=== PATIENT | female | born 1970 | race Caucasian/White ===

== ENCOUNTER 2016-08-15 10:57 | Observation (INO) | payer OTHER ==
--- NOTE | 2016-08-15 11:18 | CPEKG ---
Heart Rate: 88 RR Interval: 682 P-R Interval: 111 QRSD Interval: 76 QT Interval: 344 QTC Interval: 417 P [place]: 0 QRS [place]: -20 T Wave [place]: 66 EKG Severity - ABNORMAL ECG - EKG Impression: SINUS RHYTHM EKG Impression: BORDERLINE LEFT AXIS DEVIATION EKG Impression: CONSIDER ANTEROSEPTAL INFARCT EKG Impression: BORDERLINE T ABNORMALITIES, LATERAL LEADS Electronically Signed By: Robin Rocha 16-Aug-2016 13:16:45
[2016-08-15 11:30] LABS: % IMMATURE GRANULYOCYTES 0.3 % (0.0-1.1); ABSOLUTE IMMATURE GRANULOCYTES 0.03 10^3/uL (0.00-0.10); ADD DIFF? NO; ADD MORPH? NO; ADD SCAN? NO; ATYPICAL LYMPHOCYTE FLAG 0 (0-99); FRAGMENT RBC FLAG 0 (0-99); HEMATOCRIT 42.4 % (38.0-47.0); HEMOGLOBIN 14.7 g/dL (12.6-16.3); LEFT SHIFT FLG 0 (0-99); LIPEMIA HEMOLYSIS FLAG 90 (0-99); MEAN CELL HEMOGLOBIN 31.2 pg (27.9-34.1); MEAN CELL HEMOGLOBIN CONCENTR. 34.7 g/dL (32.4-36.7); MEAN PLATELET VOLUME 8.7 fL (8.7-11.7); PLATELET CLUMPS FLAG 10 (0-99); PLATELET COUNT 406 10^3/uL (150-400); RED BLOOD CELL COUNT 4.71 10^6/uL (4.18-5.33); RED CELL DISTRIBUTION WIDTH 12.7 % (11.5-15.2)
[2016-08-15] MEDS ORDERED: ASPIRIN 81 MG CHEWABLE TAB PO ONE (11:31)
[2016-08-15 11:35] LABS: INR 0.98 (0.83-1.16); PROTIME(PATIENT) 12.8 SEC (12.0-15.0)
[2016-08-15 11:36] LABS: APTT 28.7 SEC (23.0-38.0)
--- NOTE | 2016-08-15 11:52 | DX ---
Chest, PA and lateral. History: Chest pressure. Cough. Findings: Heart size is within normal limits. Pulmonary vascularity is normal. The lungs are clear. No evidence of pleural effusion or pneumothorax. Minimal degenerative change is seen in the thoracic spine. Impression: No evidence of acute cardiopulmonary abnormality.
[2016-08-15 11:53] LABS: TROPONIN I < 0.012 ng/mL (0-0.034)
[2016-08-15 11:55] LABS: ALANINE AMINOTRANSFERASE 22 IU/L (9-52); ALBUMIN 4.5 g/dL (3.5-5.0); ALKALINE PHOSPHATASE 66 IU/L (38-126); ANION GAP 14 mEq/L (8-16); ASPARTATE AMINOTRANSFERASE 16 IU/L (14-46); BILIRUBIN,TOTAL 1.3 mg/dL (0.1-1.4); CALCIUM 9.8 mg/dL (8.5-10.4); CARBON DIOXIDE 23 mEq/l (22-31); CHLORIDE 106 mEq/L (97-110); CREATININE 0.7 mg/dL (0.6-1.0); GLOMERULAR FILTRATION RATE > 60; GLUCOSE 97 mg/dL (70-100); MAGNESIUM 2.1 mg/dL (1.6-2.3); SODIUM 143 mEq/L (134-144)
--- NOTE | 2016-08-15 12:20 | UCPHY ---
H & P Patient Type: New Chief Complaint Nursing Narrative: MIDSTERNAL CHEST PAIN FOR 2 DAYS INTERMITTENTLY, SHORTNESS OF BREATH, TINGLINIG IN BILATERAL HANDS, DENIES DIZZINESS OR NAUSEA, DENIES COUGH, DENIES FEVERS. DENIES CHEST PAIN AT THIS TIME Time Seen by Provider: 08/15/16 11:08 HPI/ROS: 46-year-old female presents complaining of substernal chest pressure that has been intermittent over the last 48 hours and then today she has also noticed some tingling in bilateral hands. She states that sometimes feels like difficulty taking a deep breath and although she does not complain of shortness of breath. She denies cough she denies fevers or chills she denies recent illness She has no history of hypertension diabetes mellitus or high cholesterol. One grandparent to her knowledge had heart disease otherwise she has no family history of coronary artery disease as far she knows. She denies leg swelling she denies prolonged travel, or hormonal therapy. Review of systems General no fever no chills no weakness HEENT no eye pain no eye discharge. No eye redness, no sore throat Respiratory no cough, no shortness of breath Cardiac positive chest pain, no peripheral edema GI no abdominal pain, no diarrhea, no constipation, no nausea, no vomiting no flank pain, no hematuria, no dysuria Musculoskeletal no myalgias, no joint pain Heme no easy bruising, no easy bleeding Endo no polyuria, no polydipsia Skin no rashes, no pruritus Neuro no syncope, no dizziness, no headaches Psych is no suicidal ideation, no homicidal ideation Source: Patient Exam Limitations: No limitations - Personal History LMP (Females 10-55): 8-14 Days Ago Current Tetanus/Diphtheria Vaccine: Unsure - Medical/Surgical History Hx Asthma: No Hx Chronic Respiratory Disease: No Hx Diabetes: No Hx Cardiac Disease: No Hx Renal Disease: No Hx Cirrhosis: No Hx Alcoholism: No Hx HIV/AIDS: No Hx Splenectomy or Spleen Trauma: No Other PMH: DENIES - Family History Significant Family History: No pertinent family hx - Social History Smoking Status: Never smoked Alcohol Use: None Drug Use: None - Physical Exam Exam: 46-year-old female HEENT atraumatic normocephalic, extraocular muscles intact, anicteric Oropharynx negative for erythema negative exudate, tolerating her own secretions Neck supple no meningismus Lungs clear to auscultation bilaterally Heart regular rate and rhythm without murmur rub or gallop Abdomen nondistended normoactive bowel sounds soft nontender Back no CVA tenderness, no step-offs, no spinal tenderness Extremities no cyanosis clubbing or edema Neuro alert and oriented, no focal deficits Constitutional: Initial Vital Signs Temperature (C) 37.2 C 08/15/16 11:05 Heart Rate 103 H 08/15/16 11:05 Respiratory Rate 18 08/15/16 11:05 Blood Pressure 143/108 H 08/15/16 11:05 O2 Sat (%) 98 08/15/16 11:05 O2 Delivery Mode Room Air Allergies/Adverse Reactions: No Known Allergies Allergy (Unverified 08/15/16 11:09) Home Medications: Medication Instructions Recorded NK [No Known Home Meds] 08/15/16 Medical Decision Making - Diagnostics EKG Interpretation: Nonspecific T-wave flattening in the lateral leads On repeat EKG while having substernal chest pain T-wave inversion in the lateral leads Imaging: Chest x-ray negative ED Course/Re-evaluation: Patient seen and evaluated for substernal chest pain intermittent over the last 48 hours. EKG with nonspecific ST flattening on arrival in lateral leads Given aspirin 324 mg Patient currently without pain She later developed some pain that she rated at 3 or 4/10 at that time she was given sublingual nitroglycerin with the pain lower ring to 0 to 1/10 A repeat EKG at that time showed new T-wave inversion in the lateral leads. Labs had been sent CBC within normal limits, D-dimer negative, troponin negative, TSH within normal limits Chest x-ray normal Impression Substernal chest pain with normal laboratories Nonspecific ST T wave changes in lateral leads Plan Admit for rule out ACS Discussed with hospitalist Patient admitted to [facility] at [facility] - Data Points Laboratory Results: Laboratory Results 08/15/16 11:15 08/15/16 11:15 08/15/16 11:15 WBC 9.60 H 10^3/uL (3.80-9.50) RBC 4.71 10^6/uL (4.18-5.33) Hgb 14.7 g/dL (12.6-16.3) Hct 42.4 % (38.0-47.0) MCV 90.0 fL (81.5-99.8) MCH 31.2 pg (27.9-34.1) MCHC 34.7 g/dL (32.4-36.7) RDW 12.7 % (11.5-15.2) Plt Count 406 H 10^3/uL (150-400) MPV 8.7 fL (8.7-11.7) Neut % (Auto) 81.6 H % (39.3-74.2) Lymph % (Auto) 12.5 L % (15.0-45.0) Duval % (Auto) 5.1 % (4.5-13.0) Eos % (Auto) 0.2 L % (0.6-7.6) Baso % (Auto) 0.3 % (0.3-1.7) Nucleat RBC Rel Count 0.0 % (0.0-0.2) Absolute Neuts (auto) 7.83 H 10^3/uL (1.70-6.50) Absolute Lymphs (auto) 1.20 10^3/uL (1.00-3.00) Absolute Monos (auto) 0.49 10^3/uL (0.30-0.80) Absolute Eos (auto) 0.02 L 10^3/uL (0.03-0.40) Absolute Basos (auto) 0.03 10^3/uL (0.02-0.10) Absolute Nucleated RBC 0.00 10^3/uL (0-0.01) Immature Gran % 0.3 % (0.0-1.1) Immature Gran # 0.03 10^3/uL (0.00-0.10) PT 12.8 SEC (12.0-15.0) INR 0.98 (0.83-1.16) APTT 28.7 SEC (23.0-38.0) D-Dimer < 0.27 ug/mLFEU (0.00-0.50) Sodium 143 mEq/L (134-144) Potassium 4.0 mEq/L (3.5-5.2) Chloride 106 mEq/L (97-110) Carbon Dioxide 23 mEq/l (22-31) Anion Gap 14 mEq/L (8-16) BUN 10 mg/dL (7-23) Creatinine 0.7 mg/dL (0.6-1.0) Estimated GFR > 60 Glucose 97 mg/dL (70-100) Calcium 9.8 mg/dL (8.5-10.4) Magnesium 2.1 mg/dL (1.6-2.3) Total Bilirubin 1.3 mg/dL (0.1-1.4) AST 16 IU/L (14-46) ALT 22 IU/L (9-52) Alkaline Phosphatase 66 IU/L (38-126) Creatine Kinase 38 IU/L (0-156) Troponin I < 0.012 ng/mL (0-0.034) Total Protein 8.0 g/dL (6.3-8.2) Albumin 4.5 g/dL (3.5-5.0) TSH Cancelled Medications Given: Discontinued Medications Aspirin (Aspirin) 324 mg PO EDNOW ONE Stop: 08/15/16 11:32 Last Admin: 08/15/16 11:50 Dose: 324 mg Nitroglycerin (Nitrostat) 0.4 mg SL EDNOW ONE Stop: 08/15/16 12:28 Last Admin: 08/15/16 12:27 Dose: 1 tab Nitroglycerin (Nitrostat) 0.4 mg SL EDNOW ONE Stop: 08/15/16 12:47 Last Admin: 08/15/16 12:51 Dose: 1 tab Departure - Departure Disposition: [facility] Inpatient Acute Clinical Impression: Chest pain Condition: Good - PQRS PQRS Measurement: Not applicable
[2016-08-15] MEDS ORDERED: NITROGLYCERIN 0.4 MG BTL SL ONE ×3 (12:27→12:46)
--- NOTE | 2016-08-15 12:32 | CPEKG ---
Heart Rate: 96 RR Interval: 625 P-R Interval: 116 QRSD Interval: 68 QT Interval: 396 QTC Interval: 501 P [place]: 23 QRS [place]: -15 T Wave [place]: 209 EKG Severity - ABNORMAL ECG - EKG Impression: SINUS RHYTHM EKG Impression: BORDERLINE LEFT AXIS DEVIATION EKG Impression: CONSIDER ANTEROSEPTAL INFARCT EKG Impression: NONSPECIFIC T ABNORMALITIES, DIFFUSE LEADS EKG Impression: BORDERLINE PROLONGED QT INTERVAL Electronically Signed By: Robin Rocha 16-Aug-2016 13:16:57
[2016-08-15 14:07] VITALS: O2SAT 97
[2016-08-15] MEDS ORDERED: NITROGLYCERIN 0.4 MG BTL SL PRN (17:02)
[2016-08-15] MEDS ORDERED: ONDANSETRON 4 MG/2 ML VIAL IVP PRN (17:02)
--- NOTE | 2016-08-15 17:08 | PDGENHP ---
History and Physical History and Physical: HISTORY AND PHYSICAL ADMISSION NOTE CC: Chest discomfort and dyspnea HISTORY: This patient yesterday noticed onset of intermittent sense of shortness of breath and needing to take a deep breath although this did not necessarily seem exertional. This was episodic and at times was associated with numbness and tingling in both hands but no anxiety, cough, fever symptoms or chest discomfort. Last night during the night she was awakened by of substernal pressure discomfort that lasted for about an hour and was relieved when she got out of bed and sat up in a recliner chair to sleep. Today during the day she has had several episodes of similar chest discomfort including 1 that occurred while she was at the urgent care where she initially presented. These were not brought on by exertion per se that she recalls or anything else in particular that she can recall. None of them were associated with dyspnea tingling sweats or nausea. She has had no pleuritic pain no fevers no leg pain or swelling no orthopnea. She has had no difficulty swallowing or pain with swallowing. She has no history of thromboembolic disease cardiac disease vascular disease lung disease, smoking. She has no recent travel or immobility or surgeries. She has not been ill in any other way recently. 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 Fairly inactive with occasional walking for exercise but none recently Has never smoked and does not use street drugs or alcohol, no stimulants MEDICATIONS: No current medications, no medicine allergies PHYSICAL EXAMINATION: Vital Signs: Stable with normal temperature Operations Agent: Sinus rhythm on my review Examination: General: alert, oriented, good mentation, relaxed Skin: warm, dry, good color, no rash HEENT: normal Neck: no mass or jvd Resps: relaxed Lungs: clear breath sounds Heart: regular, no murmur Abdomen: soft, nondistended, nontender, +BS, no mass Upper Extremities: normal Lower Extremities: no edema, warm No Bleeding or bruising Neurologic: normal speech/language, normal smelter liner, no focal weakness IV site: looks normal LABORATORY DATA: Negative troponin and D-dimer otherwise unrevealing chemistry and CBC RADIOLOGY STUDIES: Chest x-ray done at the urgent care, my personal interpretation of the images: Normal chest x-ray two views 12 lead EKG, my personal interpretation of the images from tracing done at the urgent care: Sinus rhythm, left axis deviation, nonspecific T-wave flattening, no specific injury or ischemic pattern ASSESSMENT: DIAGNOSES: # CHEST PAIN, DYSPNEA, TINGLING IN BOTH HANDS, OCCURRING IN A SOMEWHAT NONSPECIFIC BUT FAIRLY ATYPICAL PATTERN FOR CORONARY ISCHEMIA # UNREVEALING (NORMAL) URGENT CARE EVAL WITH EXAM, EKG, O2 SATS, CXR, D DIMER, TROPONIN # LOW OVERALL RISK OF CAD BY RISK FACTORS PLANS: -obs on EACU -card monitor -troponins -likely treadmill stress in am -other evaluations as indicated by her clinical status I have reviewed the patient's case in detail with . I have reviewed the patient's past medical records as part of this assessment, including
--- NOTE | 2016-08-15 17:47 | CPEKG ---
Heart Rate: 61 RR Interval: 984 P-R Interval: 98 QRSD Interval: 80 QT Interval: 412 QTC Interval: 415 P [place]: 0 QRS [place]: -11 T Wave [place]: 10 EKG Severity - BORDERLINE ECG - EKG Impression: SINUS RHYTHM EKG Impression: SHORT [place] INTERVAL, ACCELERATED AV CONDUCTION EKG Impression: BORDERLINE T WAVE ABNORMALITIES Electronically Signed By: Robin Rocha 16-Aug-2016 13:17:02
[2016-08-15 19:59] VITALS: RESP 16
[2016-08-16 09:17] VITALS: BP 131/85; PULSE 92; TEMP 98.6
--- NOTE | 2016-08-16 15:13 | CPR ---
[f rep st] NONINVASIVE CARDIAC PROCEDURE REPORT DATE OF PROCEDURE: 08/16/2016 PROCEDURE: Exercise treadmill stress test INDICATION: Abnormal electrocardiogram and episodes of chest pressure PRE: After obtaining informed consent, the patient was placed on electrocardiogram. Initial EKG amberly wed sinus rhythm, normal axis, slow R-wave progression in anterior leads, nonspecific T-wave abnormal ities in multiple leads. The patient denies of any chest pain, shortness of breath, or symptoms sugg esting of ischemia: Initial blood pressure 120/74, initial saturation 94% on room air. STRESS: The patient was placed on an exercise treadmill following standard Benjamín protocol with the f ollowing findings: 1. The patient exercised for 9 minutes. 2. 10.3 mets. 3. Patient obtained a heart rate of 175 BPM which was 100% of her MPHR. 4. At peak exercise, patient noted to have electrocardiogram noted to have [address] depress ion in inferior leads. 5. Patient reporting no chest pain or symptoms suggesting of ischemia at peak exercise. 6. BP variation during testing: Rest 120/74. Peak 178/56. 7. Patient maintained an SpO2 of greater than 90% throughout testing. 8. The patient was noted to have a single premature ventricular contraction during recovery. 9. Test was stopped due to maximum effort. 10. Brito treadmill score of 9, placing patient at low cardiovascular risk. RECOVERY: The patient recovered for 5 minutes, remained asymptomatic, within 5 minutes her heart rat e returned back to baseline. EKG returned to baseline. IMPRESSION: A 46-year-old female reporting atypical episodes of chest pressure, noted to have abnorm al electrocardiogram on admission. Undergoing exercise treadmill testing. Negative stress testing f or ischemia. Patient asymptomatic through testing for signs of ischemia. Brito treadmill score of 9, placing her at low cardiovascular risk. Vital signs are stable. Patient noted to have a single pre mature ventricular contraction during recovery. Results called to Hospitalist Services. /[id number]/MODL
--- NOTE | 2016-08-18 08:54 | CPEKG ---
Heart Rate: 63 RR Interval: 952 P-R Interval: 92 QRSD Interval: 80 QT Interval: 400 QTC Interval: 410 P [place]: 0 QRS [place]: -12 T Wave [place]: -33 EKG Severity - BORDERLINE ECG - EKG Impression: SINUS RHYTHM EKG Impression: ATRIAL PREMATURE COMPLEX EKG Impression: SHORT MN INTERVAL, ACCELERATED AV CONDUCTION EKG Impression: BORDERLINE T ABNORMALITIES, DIFFUSE LEADS Electronically Signed By: Robin Rocha 18-Aug-2016 10:10:00
== END 2016-08-16 13:22 | disposition home or self-care (01) ==
LOC: CED 10:57 → CEDHOLD 13:33 → F1N 14:56
PROVIDERS: ADMIT Internal Medicine; ATTEND Internal Medicine
DX: R07.2 Precordial pain (principal); R94.31 Abnormal electrocardiogram [ECG] [EKG]
CPT/HCPCS: 71020; 93005; 93017; 99204; G0378; 80053-PO; 82550-PO; 83735-PO; 84443-PO; 84484-PO; 85025-PO; 85378-PO; 85610-PO; 85730-PO; G0463-PO

== ENCOUNTER → 2018-06-07 | Outpatient (CLI) | payer OTHER | LOC: CIMAGING 07:38 | PROVIDERS: ATTEND Family Medicine | DX: Z12.31 Encounter for screening mammogram for malignant neoplasm of breast (principal); Z80.3 Family history of malignant neoplasm of breast; R92.0 Mammographic microcalcification found on diagnostic imaging of breast ==

== ENCOUNTER → 2018-06-30 | Outpatient (CLI) | payer OTHER | LOC: CIMAGING 12:42 | DX: R92.0 Mammographic microcalcification found on diagnostic imaging of breast (principal) ==